=== PATIENT | female | born 1980 | race Caucasian/White ===

== ENCOUNTER 2019-01-25 21:24 | Emergency (ER) | payer MEDICAID, OTHER ==
[~2019-01-25] VITALS: Ht 165.1 cm; Wt 104.3 kg
[2019-01-25 23:23] VITALS: BP 127/69
[2019-01-25] MEDS ORDERED: HYDROcodone-ACET 5/325MG TAB PO ONE (23:30)
[2019-01-25] MEDS ORDERED: IBUPROFEN 800 MG TAB PO ONE (23:30)
== END 2019-01-26 00:19 | disposition home or self-care (01) ==
LOC: ER 21:29
DX: S93.401A Sprain of unspecified ligament of right ankle, initial encounter (principal); W10.8XXA Fall (on) (from) other stairs and steps, initial encounter; Y93.89 Activity, other specified; Y92.89 Other specified places as the place of occurrence of the external cause; Y99.8 Other external cause status
CPT/HCPCS: 73610